=== PATIENT | female | born 1945 ===

== ENCOUNTER 2024-10-31 11:05 | Outpatient (AMB) | payer MEDICARE, SELFPAY ==
--- OUTSIDE RECORDS SUMMARY | 2024-10-31 12:28 | XMS_ITS | Clinical Summary ---
Author Organization [facility] Address [address] [place] [address] Phone Care Team Providers Care Manager Parking Name Role Phone Aman Jones MD Primary Care Provider Allergies Active Allergy Reactions Criticality Noted Date Comments Pseudoephedrine 09/07/2024 Sulfa (Sulfonamide Antibiotics) 09/07/2024 Other Reaction(s): hives/itch/skin peeled Medications lisinopriL (PRINIVIL,ZESTR IL) 20 mg tablet Take 1 tablet (20 mg total) by mouth 1 (one) time each day. Active fluvastatin (LESCOL) 40 mg capsule Take 1 capsule (40 mg total) by mouth at bedtime. 2 capsule Active fluticasone propion-salmete roL (ADVAIR DISKUS) 100-50 mcg/dose diskus inhaler Inhale 1 puff by mouth 2 (two) times a day. Rinse mouth with water after use to reduce aftertaste and incidence of candidiasis. Do not swallow. Active allopurinoL (ZYLOPRIM) 300 mg tablet Take 1 tablet (300 mg total) by mouth 1 (one) time each day. Active lansoprazole (PREVACID) [address] capsule Take 1 capsule (15 mg total) by mouth 1 (one) time each day before breakfast. Do not crush or chew. Active ezetimibe (ZETIA) 10 mg tablet Take 1 tablet (10 mg total) by mouth 1 (one) time each day. Active tamsulosin (FLOMAX) 0.4 mg 24 hr capsule Take 1 capsule (0.4 mg total) by mouth 1 (one) time each day with breakfast. Capsules should be taken 30 minutes following the same meal each day. Active UNABLE TO FIND Take 1,000 mg by mouth 1 (one) time each day. Vitamin D3 Active psyllium (METAMUCIL) powder Take 1 packet by mouth 1 (one) time each day. Active metoprolol succinate (Toprol XL) 25 mg 24 hr tablet Take 0.5 tablets (12.5 mg total) by mouth 1 (one) time each day. Do not crush or chew. 15 each 5 09/08/19 26 Active aspirin 81 mg EC tablet Take 1 tablet (81 mg total) by mouth 1 (one) time each day. 30 each 5 09/08/19 26 Active Active Problems Problem Noted Date Diagnosed Date Coronary artery disease invo lving [place] coronary artery of [place] heart without angina pectoris 09/07/2024 Assessment & Plan (09/07/2024 11:22 AM EDT): From stress echo report, he had inferior infarct previously and had no evidence of ischemia by stress echo. The test was done in [facility] and I could not review image. Is unclear how quickly the poststress echo image was obtained. He has atypical chest discomfort which is not activity related. I will schedule exercise nuclear perfusion stress test. At the meantime, he will start aspirin and low-dose metoprolol due to frequent PVCs. PVC's (premature ventricular contractions) 09/07 Assessment & Plan (09/07/2024 11:22 AM EDT): EKG showed frequent PVCs and he had frequent PVC in recovery during stress test. Previous EKG back to 2003 also showed PVCs. Low-dose metoprolol will be added due to relatively lower heart rate at rest. The dose can be increased if he can tolerate. Will arrange 24-hour Holter monitor to assess PVC burden. Orders: Cardiac holter monitor (<= 48 hours); Future Primary hypertension 09/07/2024 Assessment & Plan (09/07/2024 11:22 AM EDT): Blood pressure slightly higher today. Will monitor blood pressure with initiation of low-dose beta-mahamed. Mild aortic valve stenosis 09/07/2024 Assessment & Plan (09/07/2024 11:22 AM EDT): Will continue to monitor aortic valve stenosis. Abnormal stress test 09/06/2024 Assessment & Plan (09/07/2024 11:22 AM EDT): Orders: Ambulatory referral to Cardiology ECG 12 lead Encounters Date Type Department Care Team Description 10/04/2024 Telephone [facility] - [address] [place] [address] Glenn Brown MD hospital procedure (cath) 09/22/2024 12:30 PM EDT Ancillary Procedure [facility] - [address] [place] [address] Coronary artery disease involving [place] coronary artery of [place] heart, unspecified whether angina present; Coronary artery disease involving [place] coronary artery of [place] heart without angina pectoris 09/07/2024 11:00 AM EDT Ancillary Procedure [facility] - [address] [place] [address] PVC's (premature ventricular contractions) 09/07/2024 10:20 AM EDT Office Visit [facility] - [address] [place] [address] Glenn Brown MD PVC's (premature ventricular contractions) (Primary Dx); Abnormal stress test; Coronary artery disease involving [place] coronary artery of [place] heart, unspecified whether angina present; Coronary artery disease involving [place] coronary artery of [place] heart without angina pectoris; Primary hypertension; Mild aortic valve stenosis from Last 3 Months Medical History Medical History Date Comments Allergic rhinitis Asthma Benign lymphoid polyp of colon Cutaneous cyst Diarrhea Gallstone Gout Hypercholesteremia Hypertensive disorder Hypothyroidism Internal hemorrhoid Kidney stone Left hand pain Left shoulder pain Non-alcoholic fatty liver disease Prediabetes Thrombocytopenia (CMS/HCC V24) Liver fibrosis Social History Tobacco Use Types Packs/Day Years Used Date Smoking Tobacco: Never Tobacco Cessation:Counseling Given: Not Answered Alcohol Use Standard Drinks/Week Comments Not Currently 0 (1 standard drink = 0.6 oz pur e alcohol) Sex and Gender Information Value Date Recorded Sex Assigned at Not on file Legal Sex Male 3:52 PM EST Gender Identity Not on file Sexual Orientation Not on file Obstetrics History Last Filed Vital Signs Vital Sign Reading Time Taken Comments Blood Pressure 149/85 09/22/2024 12:39 PM EDT Pulse 64 09/07/2024 10:18 AM EDT Temperature - - Respiratory Rate - - Oxygen Saturation 95% 09/07/2024 10:18 AM EDT Inhaled Oxygen Concentration - - Weight 95.3 kg (210 lb) 09/22/2024 12:39 PM EDT Height 175.3 cm (5' 9 ) 09/22/2024 12:39 PM EDT Body Mass Index 31.01 09/22/2024 12:39 PM EDT Plan of Treatment Upcoming Encounters Date Type Department Care Team (Late st Contact Info) Description 11/09/2024 12:40 PM EDT Office Visit [facility] - [address] [place] [address] Rachel James NP [address] [place] [id number] 12/08/2024 10:40 AM EDT Office Visit [facility] - [address] [place] [address] Rachel James NP [address] [place] [id number] Health Maintenance Due Date Last Done Comments Zoster Vaccines (2 of 2) 01/28/2018 12/03/2017 Cholesterol Screening (Lipid Panel) 02/05/2022 Falls Risk Assessment 02/05/2022 Medicare Annual Wellness Visit 02/05/2022 Social Influencers of Health Screening 02/05/2022 Depression Screening 03/09/2024 COVID-19 Vaccine ( season) 2024 11/08/2023, 12/07/2022, 07/21/2022, Additional history exists Hypertension/CHF/CAD Annual BMP Blood Test 09/08/2024 Influenza Vaccine (#1) 2024 , 11/20/2022, 12/13/2021, Additional history exists DTaP,Tdap,and Td Vaccines (2 - Td or Tdap) 10/24/2029 10/25/2019 Pneumococcal Vaccine: 50+ Years Completed 11/13/2022 RSV Immunization Adult Patients Completed 01/26/2023 HIB Vaccines Aged Out No longer eligi ble based on patient's age to complete this topic HPV Vaccines Aged Out No longer eligi ble based on patient's age to complete this topic Hepatitis A Vaccines Aged Out No long er eligible based on patient's age to complete this topic Hepatitis B Vaccines Aged Out No long er eligible based on patient's age to complete this topic IPV Vaccines Aged Out No longer eligi ble based on patient's age to complete this topic MMR Vaccines Aged Out No longer eligi ble based on patient's age to complete this topic Meningococcal ACWY Vaccine Aged Out N o longer eligible based on patient's age to complete this topic Meningococcal B Vaccine Aged Out No l onger eligible based on patient's age to complete this topic RSV Immunization Patients Under 20 months Aged Out No longer eligible based on patient's age to complete this topic Varicella Vaccines Aged Out No longer eligible based on patient's age to complete this topic Procedures Procedure Name Priority Date/Time Associated Diagnosis Comments NM EXERCISE STRESS TEST W/ MYOCARDIAL PERFUSION Routine 09/22/2024 3:02 PM EDT Coronary artery disease involving [place] coronary artery of tling[place] & [place] heart, unspecified whether angina present Coronary artery disease involving [place] coronary artery of t[place] heart without angina pectoris CARDIAC HOLTER MONITOR (REPORT GENERATED IN HOUSE) Routine 09/07/2024 11:38 AM EDT PVC's (premature ventricular contractions) ECG 12-LEAD Routine 09/07/2024 10:26 AM EDT Abnormal stress test EXTERNAL CLINICAL LAB Routine 09/05/2024 9:50 AM EDT from Last 3 Months Results * NM EXERCISE STRESS TEST W/ MYOCARDIAL PERFUSION (09/22/2024 3:02 PM EDT) Exercise/injec tion duration (min) 4 CV PACS STRESS Exercise/injec tion duration (sec) 1 CV PACS STRESS Peak SBP 154 mmHg CV PACS STRESS Peak DBP 80 mmHg CV PACS STRESS Peak HR 122 bpm CV PACS STRESS Baseline HR 74 bpm CV PACS STRESS Baseline SBP 149 mmHg CV PACS STRESS Baseline DBP 85 mmHg CV PACS STRESS Estimated workload 3.4 METS CV PACS STRESS Percent HR 87 % CV PACS STRESS Rate Pressure Product 18,788.0 mmHg*bpm CV PACS STRESS Target HR 119 bpm CV PACS STRESS TID 1.02 CV PACS STRESS Nuc Stress EF 53 % CV PAC S STRESS Nuc Rest EF 45 % CV PACS STRESS BSA 2.15 m2 CV PACS STRESS Anatomical Region Laterality Modality Nuclear Medicine 09/22/2024 1:20 PM EDT 09/22/2024 1:56 PM EDT Narrative 09/23/2024 6:05 PM EDT Raw Images and CineLoop Images: Impression: 1. Abnormal exercise stress test with nuclear imaging due to LV dysfunction and dilated LV. 2. The patient had no chest pain during the test. 3. EKG at baseline was normal sinus rhythm, no ischemic EKG changes at stress. 4. LV Cavity size is dilated. 5. No transient ischemic dialatation (TID 1.0 to) 6, CT scan showed mild calcification of the LAD noted. No significant calcification of the LCx or RCA. 7. Raw perfusion imgaes revelaed moderate in size, moderate intensity perfusion defect of the basal to apical inferior wall and basal inferolateral wall both at stress and rest. When attenuation correction is applied, this perfusion defect normalizes predominantly in the stress images but still some hypoperfusion noted in the basal inferolateral wall and apical inferior wall at rest which suggests artifact. 8. Gated SPECT imaging was performed which demonstrated global hypokinesis with regional variation. The calculated left ventricular ejection fraction was 45% at rest and 53% at stress. Stress Findings A modified Chandrakant protocol stress test was performed. Overall, the patient's exercise capacity was below average. Total stress time was 4 min and 1 sec. The test was stopped because the patient experienced fatigue. Blood pressure demonstrated a normal response. Heart rate demonstrated a normal response. The patient reported no chest pain during the stress test. ECG 79 year old male with PMH of CAD, HTN, HLD and obesity with reports of atypical chest discomfort. The ECG shows normal sinus rhythm. The ECG axis is normal. Arrhythmias during stress: rare premature ventricular contractions (PVCs) . There is no significant ST abnormalities during stress. Arrhythmias during recovery: occasional premature ventricular contractions (PVCs). Nuclear Study Quality Study technique: MPI, SPECT, multi, rest and stress, 1 day and gated. Overall image quality is good. CT attenuation correction was utilized. No radiopharmaceutical dose was extravasated. Stress Function Comments Stress ejection fraction is 53%. Rest Function Comments Resting ejection fraction was 45%. us Glenn Brown MD CV STRESS PROCEDURES Final Resul t * CARDIAC HOLTER MONITOR (REPORT GENERATED IN HOUSE) (09/07/2024 11:38 AM EDT) Anatomical Region Laterality Modality Cardiac Diagnost ic Narrative 09/16/2024 3:55 PM EDT [facility] DI[facility]ST[facility] DEPARTMENT [address] [place] [address], [id number] [place] [id number] TEL: FAX: Type of Test: 24 Hour Holter Monitor Date of Test: 09/07/2024 Ordering Provider: Glenn Brown MD Reason for Test: PVCs (premature ventricular contractions) PVCA Development Manager Findings: 1: Predominant rhythm was Normal Sinus Rhythm. 2: Occasional PACs. Rare atrial pairs. One 3-beat atrial run with rate of 145 bpm. 3: Frequent PVCs, aberrantly conducted beats, and ventricular trigeminy. Occasional couplets and ventricular bigeminy. Rare triplets and one 5-beat ventricular run with aberrancy. PVC [place] was 7.1%. 4: No significant pauses noted, longest R-R was 1.8 seconds at 12:48 AM. 5: Diary returned with very minor discomfort near upper left electrode noted. EKG at that time showed Normal Sinus Rhythm with isolated PVCs and heart rate of 62 bpm. Impression: Baseline rhythm was normal sinus rhythm. There were frequent premature ventricular complexes with a PVC burden of 7.1%. There was a 5 beat ventricular run. There were occasional premature atrial complexes. No sustained atrial or ventricular arrhythmias and no bradycardia or pauses Glenn Brown MD CV CARDIAC SERVICES PROCEDURES F inal Result * ECG 12 lead (09/07/2024 10:26 AM EDT) Ventricular Rate ECG 64 BPM GEMUSE Atrial Rate 64 BPM GEMUSE P-R Interval 168 ms GEMUSE QRS Duration 100 ms GEMUSE Q-T Interval 424 ms GEMUSE QTc 437 ms GEMUSE P Wave [place] 27 degrees GEMUSE R [place] -11 degrees GEMUSE T [place] 15 degrees GEMUSE ECG Interpretation Sinus rhythm with frequent Premature ventricular complexes Otherwise normal ECG When compared with ECG of 20-FEB-2004 15:49, Premature ventricular complexes are now Present Confirmed by Tami BROWN YUFENG ([id number]) on 09/07/2024 11:06:35 AM GEMUSE 09/07/2024 10:2 6 AM EDT 09/07/2024 11:06 AM EDT Glenn Brown MD ECG ORDERABLES Final Result GEMUSE * External clinical lab (09/05/2024 9:50 AM EDT) Historical Provider LAB BLOOD ORDERABLES Ena l Result from Last 3 Months Insurance MEDICARE [facility] Advance Directives Documents on File Type Date Recorded 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
== END 2024-10-31 11:44 | disposition home or self-care (01) ==
LOC: HO.HMGAL 11:05
PROVIDERS: PCP Internal Medicine; Visit Provider Registered Nurse Emergency
DX: J30.89 Other allergic rhinitis (principal)
CPT/HCPCS: 95117; 95165

== ENCOUNTER 2024-11-16 09:45 | Outpatient (AMB) | payer MEDICARE, SELFPAY | END 2024-11-16 09:48 | disposition home or self-care (01) | LOC: HO.HMGAL 09:45 | PROVIDERS: PCP Internal Medicine; Visit Provider Registered Nurse Emergency | DX: J30.89 Other allergic rhinitis (principal) | CPT/HCPCS: 95117; 95165 ==

== ENCOUNTER 2024-11-30 09:39 | Outpatient (AMB) | payer MEDICARE, SELFPAY ==
--- OUTSIDE RECORDS SUMMARY | 2024-11-30 11:36 | XMS_ITS | Clinical Summary ---
Author Organization [facility] Address [address] [facility] [place] [address] Phone Care Team Providers Care Finance Officer Name Role Phone Aman Jones MD Primary Care Provider Allergies Active Allergy Reactions Criticality Noted Date Comments Pseudoephedrine 09/07/2024 Sulfa (Sulfonamide Antibiotics) 09/07/2024 Other Reaction(s): hives/itch/skin peeled Medications lisinopriL (PRINIVIL,ZEST RIL) 20 mg tablet Take 1 tablet (20 mg total) by mouth 1 (one) time each day. Active fluvastatin (LESCOL) 40 mg capsule Take 1 capsule (40 mg total) by mouth at bedtime. 2 capsule Active fluticasone propion-salmet Johana (ADVAIR DISKUS) 100-50 mcg/dose diskus inhaler Inhale [...] each day. Do not crush or chew. 45 each 3 5 Active aspirin 81 mg EC tablet Take 1 tablet (81 mg total) by mouth 1 (one) time each day. 90 each 3 5 Active ticagrelor (BRILINTA) 90 mg tablet Take 1 tablet (90 mg total) by mouth 2 (two) times a day. 180 tablet 3 5 Active metoprolol succinate (Toprol XL) 25 mg 24 hr tablet Take 0.5 tablets (12.5 mg total) by mouth 1 (one) time each day. Do not crush or chew. 15 each 5 11/10/19 25 Discontinu ed(Reorder ) aspirin 81 mg EC tablet Take 1 tablet (81 mg total) by mouth 1 (one) time each day. 30 each 5 11/10/19 25 Discontinu ed(Reorder ) ticagrelor (BRILINTA) 90 mg tablet Take 1 tablet (90 mg total) by mouth 2 (two) times a day. 5 11/10/19 25 Discontinu ed(Reorder ) Active Problems Problem Noted Date Diagnosed Date Hypercholesteremia 11/09/2024 Assessment & Plan (11/09/2024 12:52 PM EDT): Last lipid panel reviewed and under excellent control with LDL 60 which is at goal of less than 70. Continue fluvastatin and ezetimibe as prescribed. Ischemic cardiomyopathy 11/09/2024 Assessment & Plan (11/09/2024 1:12 PM EDT): LV systolic function was low normal with an EF of 52% by biplane Gomez on echocardiogram in June 2024. Calculated LVEF was 45% at rest and pharmacological nuclear stress testing. Will update echocardiogram to reassess cardiac function. Continue lisinopril and metoprolol as prescribed. Coronary artery disease invo lving gambell coronary artery of gambell heart without angina pectoris 09/07/2024 Assessment & Plan (11/09/2024 1:10 PM EDT): He underwent a cardiac catheterization in October 2024 which revealed mild luminal irregularities of the LMCA, 80% stenosis in the distal subsection of the proximal LAD, mild luminal irregularities of the LCx and minimal luminal irregularities of the RCA. He underwent an IVUS guided successful PCI of the proximal LAD with a drug-eluting stent. He denies anginal symptoms. He is participating in cardiac rehab. Continue current medical therapies with aspirin, Brilinta, ezetimibe, fluvastatin and metoprolol. For any chest pain/discomfort, especially if associated with exertion, that lasts longer than 10-15 minutes and does not resolve with rest, patient has been encouraged to seek immediate medical attention by calling 911. Assessment & Plan (09/07/2024 11:22 AM EDT): From stress echo report, he had inferior infarct previously and had no evidence of ischemia by stress echo. The test was done in [facility] and I could not review image. Is [...] Future Primary hypertension 09/07/2024 Assessment & Plan (11/09/2024 12:52 PM EDT): Blood pressure is reasonable in the office today at 136/80. No change to current medical therapy, continue lisinopril and metoprolol as prescribed. Assessment & Plan (09/07/2024 11:22 AM EDT): Blood pressure slightly higher today. Will monitor blood pressure with initiation of low-dose beta-mahamed. Mild aortic valve stenosis 09/07/2024 Assessment & Plan (11/09/2024 1:07 PM EDT): The aortic valve appeared moderately calcified with mild aortic stenosis and trace regurgitation on echo in June 2024. Will continue to monitor with future echocardiograms. Assessment & Plan (09/07/2024 11:22 AM EDT): Will continue to monitor aortic valve stenosis. Abnormal stress test 09/06/2024 Assessment & Plan (09/07/2024 11:22 AM EDT): Orders: Ambulatory referral to Cardiology ECG 12 lead Encounters Date Type Department Care Team Description 11/09/2024 12:40 PM EDT Office Visit [facility] - [address] [place] [address] Rachel James NP Coronary artery disease involving gambell coronary artery of gambell heart without angina pectoris (Primary Dx); Primary hypertension; Mild aortic valve stenosis; Hypercholesteremia; Ischemic cardiomyopathy 10/04/2024 Telephone [facility] - [address] [place] [address] Glenn Brown MD 09/22/2024 12:30 PM EDT Ancillary Procedure [facility] - [address] [place] [address] Coronary artery disease involving gambell coronary artery of gambell heart, unspecified whether angina present; Coronary artery disease involving gambell coronary artery of gambell heart without angina pectoris 09/07/2024 11:00 AM EDT Ancillary Procedure [facility] - [address] [place] [address] PVC's (premature ventricular contractions) 09/07/2024 10:20 AM EDT Office Visit [facility] - [address] [place] [phone] Glenn Brown MD PVC's (premature ventricular contractions) (Primary Dx); Abnormal stress test; Coronary artery disease involving gambell coronary artery of gambell heart, unspecified whether angina present; Coronary artery disease involving gamb[place] coronary artery of gambell heart without angina pectoris; Primary hypertension; Mild aortic valve stenosis from Last 3 Months Surgical History Surgery Date Site/Laterality Comments CARDIAC CATH DONE ON 10/12/2024 AT [facility] INDICATIONS:ABNORMAL STRESS TREADMILL STUDY Medical History Medical History Date Comments Allergic [...] Sign Reading Time Taken Comments Blood Pressure 136/80 11/09/2024 12:40 PM EDT Pulse 59 11/09/2024 12:40 PM EDT Temperature - - Respiratory Rate - - Oxygen Saturation 98% 11/09/2024 12:40 PM EDT Inhaled Oxygen Concentration - - Weight 95.7 kg (211 lb) 11/09/2024 12:40 PM EDT Height 175.3 cm (5' 9 ) 11/09/2024 12:40 PM EDT Body Mass Index 31.16 11/09/2024 12:40 PM EDT Plan of Treatment Upcoming Encounters Date Type Department Care Team (Late st Contact Info) Description 02/08/2025 12:30 PM EST Ancillary Procedure [facility] - [address] [place] [phone] 03/14/2025 9:10 AM EST Office Visit [facility] - [address] [place] [address] Rachel James, DANY [address] [place] [address] [place] [address] Health Maintenance Due Date Last Done Comments Zoster Vaccines (2 of 2) 01/28/2018 12/03/2017 Cholesterol Screening (Lipid Panel) 02/05/2022 Falls Risk Assessment 02/05/2022 Medicare Annual Wellness Visit 02/05/2022 Social Influencers of Health Screening 02/05/2022 Depression Screening 03/09/2024 Hypertension/CHF/CAD Annual BMP Blood Test 09/08/2024 COVID-19 Vaccine ( season) 2024 11/08/2023, 12/07/2022, 07/21/2022, Additional history exists Influenza Vaccine (#1) 2024 , 11/20/2022, 12/13/2021, [...] Procedure Name Priority Date/Time Associated Diagnosis Comments ECG 12-LEAD Routine 11/09/2024 1:14 PM EDT Coronary artery disease involving gambell coronary artery of gambell heart without angina pectoris NM EXERCISE STRESS TEST W/ MYOCARDIAL PERFUSION Routine 09/22/2024 3:02 PM EDT Coronary artery disease involving gambell coronary artery of gambell heart, unspecified whether angina present Coronary artery disease involving gambell coronary artery of gambell heart without angina pectoris CARDIAC HOLTER MONITOR (REPORT GENERATED IN HOUSE) Routine 09/07/2024 11:38 AM EDT PVC's (premature ventricular contractions) ECG 12-LEAD Routine 09/07/2024 10:26 AM EDT Abnormal stress test EXTERNAL CLINICAL LAB Routine 09/05/2024 9:50 AM EDT from Last 3 Months Results * ECG 12 lead (11/09/2024 1:14 PM EDT) Only the most recent of2 resultswithin the time period is included. Ventricular Rate ECG 59 BPM GEMUSE Atrial Rate 59 BPM GEMUSE P-R Interval 174 ms GEMUSE QRS Duration 108 ms GEMUSE Q-T Interval 418 ms GEMUSE QTc 413 ms GEMUSE P Wave [place] 49 degrees GEMUSE R [place] 17 degrees GEMUSE T [place] 52 degrees GEMUSE ECG Interpretation Sinus bradycardia When compared with ECG of 07-SEP-2024 10:26, Premature ventricular complexes are no longer Present Nonspecific T wave abnormality no longer evident in Inferior leads Confirmed by ROYCE BOOTH ([id number]) on 11/16/2024 7:30:53 PM GEMUSE 11/09/2024 12:4 4 PM EDT 11/16/2024 7:30 PM EDT Rachel Erika CLOCKMAKER ECG ORDERABLES Edited Result - Final GEMUSE * NM EXERCISE STRESS TEST W/ MYOCARDIAL [...] Diagnost ic Narrative 09/16/2024 3:55 PM EDT [facility] DEPARTMENT [address] [place] [address], [id number] [place] [address] TEL: FAX: Type of Test: 24 Hour Holter Monitor Date of Test: 09/07/2024 Ordering Provider: Glenn Brown MD Reason for Test: PVCs (premature ventricular contractions) PVCA Hairspring Ii Inspector Findings: 1: Predominant rhythm was Normal Sinus Rhythm. 2: Occasional PACs. Rare atrial pairs. One 3-beat atrial run with rate of 145 bpm. 3: Frequent PVCs, aberrantly conducted beats, and ventricular trigeminy. Occasional couplets and ventricular bigeminy. Rare triplets and one 5-beat ventricular run with aberrancy. PVC [place] was 7.1%. 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
== END 2024-11-30 09:41 | disposition home or self-care (01) ==
LOC: HO.HMGAL 09:39
PROVIDERS: PCP Internal Medicine Sports Medicine; Visit Provider Registered Nurse Emergency
DX: J30.89 Other allergic rhinitis (principal)
CPT/HCPCS: 95117; 95165

== ENCOUNTER 2024-12-14 10:35 | Outpatient (AMB) | payer MEDICARE, SELFPAY | END 2024-12-14 10:44 | disposition home or self-care (01) | LOC: HO.HMGAL 10:35 | PROVIDERS: PCP Internal Medicine Sports Medicine; Visit Provider Registered Nurse Emergency | DX: J30.89 Other allergic rhinitis (principal) | CPT/HCPCS: 95117; 95165 ==

== ENCOUNTER 2024-12-28 09:52 | Outpatient (AMB) | payer MEDICARE, SELFPAY | END 2024-12-28 09:52 | disposition home or self-care (01) | LOC: HO.HMGAL 09:52 | PROVIDERS: PCP Internal Medicine Sports Medicine; Visit Provider Registered Nurse Emergency | DX: J30.89 Other allergic rhinitis (principal) | CPT/HCPCS: 95117; 95165 ==

== ENCOUNTER 2025-01-25 09:52 | Outpatient (AMB) | payer MEDICARE, SELFPAY ==
--- OUTSIDE RECORDS SUMMARY | 2025-01-25 18:21 | XMS_ITS | Clinical Summary ---
Author Organization [facility] Address [address] [facility] [place] [address] Phone Care Team Providers Care Computer System Validation Specialist Name Role Phone Aman Jones MD Primary [...] not crush or chew. 45 each 3 Active aspirin 81 mg EC tablet Take 1 tablet (81 mg total) by mouth 1 (one) time each day. 90 each 3 Active ticagrelor (BRILINTA) 90 mg tablet Take 1 tablet (90 mg total) by mouth 2 (two) times a day. 180 tablet 3 Active Active Problems Problem Noted Date Diagnosed [...] as prescribed. Coronary artery disease invo lving [place] coronary artery of [place] heart without angina pectoris 09/07/2024 Assessment & [...] stress echo. The test was done in [facility] and I could not review image. [...] Description 11/09/2024 12:40 PM EDT Office Visit [facility] - [address] [place] [address] Rachel James NP Coronary artery disease involving [place] coronary artery of [place] heart without angina pectoris (Primary Dx); Primary hypertension; Mild aortic valve stenosis; Hypercholesteremia; Ischemic cardiomyopathy from Last 3 Months Surgical History Surgery Date Site/Laterality Comments CARDIAC CATH DONE ON 10/12/2024 AT [facility] INDICATIONS:ABNORMAL STRESS TREADMILL STUDY Medical History Medical [...] Description 02/08/2025 12:30 PM EST Ancillary Procedure [facility] - [address] [place] [address] 03/14/2025 9:10 AM EST Office Visit [facility] - [address] [place] [phone] Rachel James, DANY [address] [place] [address] [address] [place] [address] Health Maintenance Due Date Last Done [...] 1:14 PM EDT Coronary artery disease involving [place] coronary artery of [place] heart without angina pectoris from Last 3 Months Results * ECG 12 lead (11/09/2024 1:14 PM EDT) Ventricular Rate ECG 59 BPM GEMUSE Atrial Rate 59 BPM GEMUSE P-R Interval 174 ms GEMUSE QRS Duration 108 ms GEMUSE Q-T Interval 418 ms GEMUSE QTc 413 ms GEMUSE P Wave [place] 49 degrees GEMUSE R [place] 17 degrees GEMUSE T [place] 52 degrees GEMUSE ECG Interpretation Sinus bradycardia When compared with ECG of 07-SEP-2024 10:26, Premature ventricular complexes are no longer Present Nonspecific T wave abnormality no longer evident in Inferior leads Confirmed by ROYCE BOOTH ([id number]) on 11/16/2024 7:30:53 PM GEMUSE 11/09/2024 12:4 4 PM EDT 11/16/2024 7:30 PM EDT Rachel James NP ECG ORDERABLES Edited Result - Final GEMUSE from Last 3 Months Insurance MEDICARE [facility] Advance Directives Documents on File Type Date Recorded 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
== END 2025-01-25 09:53 | disposition home or self-care (01) ==
LOC: HO.HMGAL 09:52
PROVIDERS: PCP Internal Medicine Sports Medicine; Visit Provider Registered Nurse Emergency
DX: J30.89 Other allergic rhinitis (principal)
CPT/HCPCS: 95117; 95165

== ENCOUNTER 2025-02-15 10:14 | Outpatient (AMB) | payer MEDICARE, SELFPAY | END 2025-02-15 10:14 | disposition home or self-care (01) | LOC: HO.HMGAL 10:14 | PROVIDERS: PCP Internal Medicine Sports Medicine; Visit Provider Registered Nurse Emergency | DX: J30.89 Other allergic rhinitis (principal) | CPT/HCPCS: 95117; 95165 ==